=== PATIENT | female | born 1940 | race Caucasian/White ===

== ENCOUNTER 2020-03-06 15:36 | Inpatient (IN) ==
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
[2020-03-06 17:14] LABS: Hematocrit 41.4 % (37.0-47.0); Hemoglobin 13.3 gm/dL (12.5-16.0); Mean Cell Volume 90.4 fl (78-100); Mean Corpuscular Hgb Conc 32.1 g/dl (32-36); Mean Platelet Volume 9.5 fl (8-12.5); Platelet Count 196 K/mm3 (150-450); Red Blood Count 4.58 M/mm3 (4.2-5.4); Red Cell Distribution Width 13.3 % (11.5-14.0); White Blood Count 13.4 K/mm3 (4.0-10.5)
[2020-03-06 17:16] LABS: Total Cells Counted 100
[2020-03-06 17:24] LABS: Prothrombin Time (Patient) 10.7 Seconds (9.1-10.7)
[2020-03-06 17:25] LABS: INR 1.08 INR (0.92-1.08); Partial Thrombolplastin Time 22.2 Seconds (24-32)
[2020-03-06 17:28] LABS: Anion Gap 12.8 mmol/L (6.8-13.8); BUN/Creatinine Ratio 33.3 (9.0-21.6); Bilirubin, Total 0.5 mg/dL (0.0-1.1); Ca. Corrected For Albumin 9.2 mg/dL (8.4-10.2); Calcium * 9.5 mg/dL (7.9-10.9); Carbon Dioxide 26.5 mmol/L (24-32.6); Potassium 3.3 mmol/L (3.4-4.6); Total Protein 7.1 gm/dL (6.2-8.2)
[2020-03-06 17:46] LABS: Atypical (Reactive) Lymph 3 % (0-2); Basophil 1 % (0-1); Lymphocyte 2 % (20-51); Monocyte 5 % (0-9); Neutrophil 89 % (42-75); Neutrophil # 11.9 K/mm3 (1.3-6.0)
[2020-03-06 17:48] LABS: Platelet Estimate Normal (NORMAL); RBC Morphology Normal (NORMAL)
--- NOTE | 2020-03-06 18:27 | CONS ---
- Reason for consultation (1) Hip fx Date of Service: 03/06/20 HPI - General Date of Service: 03/06/20 Narrative: 79-year-old female fell at home today had significant right hip pain. Was brought to the ER x-rays were taken revealing a right femoral neck fracture. Patient rates her pain currently at a 3/10. She notes she had mild spasms. She denies any other significant symptoms currently. She denies any other acute concerns. Notes her pain is mildly worse with movement better with rest. Patient denies any other significant radiating or modifying factors. She has not taken any other significant medications prior to arrival. She denies any other acute illness. She does note she previously had a hemiarthroplasty on her left hip status post a fall but had to be revised 8 years later due to wear. Patient otherwise has no other significant history of concern at this time. Source: patient Exam Limitations: no limitations - History of Present Illness Allergies/Adverse Reactions: Allergies codeine Allergy (Verified 04/06/19 10:01) Home Medications: Home Medications Medication Instructions Recorded Last Taken Aspirin 81 mg PO DAILY 04/06/19 Unknown Physical Examination - Exam Vital Signs: Vital Signs - Last Taken Temp 36.6 C 03/06/20 15:45 Pulse 97 03/06/20 16:17 Resp 15 03/06/20 15:45 BP 219/99 H 03/06/20 15:45 Pulse Ox 99 03/06/20 15:45 O2 Oxygen Delivery Method Room Air Constitutional: Present: Alert, Cooperative, No distress Eye Exam: bilateral eye: normal inspection Respiratory: Present: no respiratory distress Peripheral Pulses: dorsalis-pedis (R): 0 Extremity: Present: other - RLE--> mild diffuse right hip pain, no obvious wounds, SILT, distal capillary refill brisk, 5/5 plantarflexion/dorsiflexion of ankle Skin Exam: Present: normal color, warm/dry Appearance: Present: appropriate appearance Eye contact: Present: cooperative Thoughts: Present: normal thought pattern - Results and Findings: Lab/Microbiology results last 24 hrs: Abnormal/Pending Laboratory Last 24 HRS 03/06/20 03/06/20 03/06/20 17:08 17:08 17:08 WBC 13.4 H Neutrophils % (Manual) 89 H Lymphocytes % (Manual) 2 L Neutrophils # (Manual) 11.9 H Lymphocytes # (Manual) 0.3 L Atypic/Reactive Lymphs 3 H PTT (Delta) 22.2 L Potassium 3.3 L BUN 26 H BUN/Creatinine Ratio 33.3 H Random Glucose 128 H - Assessments/Findings (1) Hip fx Problem: Acute Plan - Plan Plan: -79-year-old female presents status post fall with a right femoral neck fracture. Discussed with patient treatment options including conservative or surgical intervention as well as risk versus benefits including but not limited to infection, bleeding, continued pain, implant failure, fracture, cardiac and stroke risk, inherent risk of surgery. Patient expressed understanding wishes to proceed with surgical intervention. Plan to undergo surgical intervention on 03/07/2020 pending medical clearance. Patient will be n.p.o. at midnight tonight. Patient expressed understanding this treatment plan was discussed with her family as well as well as postoperative care and possible need for custodial facility. They expressed understanding will continue to discuss and determine further treatment after surgical intervention. Discussed the case with Dr. Garnica and he agrees to proceed. Consent was obtained patient was marked, we will proceed with surgery as scheduled once medical team has assessed and patient is admitted. Note there is a Covid test pending.
[2020-03-06] MEDS: NORMAL SALINE 1,000 ML IV PRN (20:16)
[2020-03-06] MEDS ORDERED: ACETAMINOPHEN 500 MG TABLET PO PRN (20:43)
--- NOTE | 2020-03-06 20:51 | HP ---
Chief Complaint - Chief Complaint Date of Service: 03/06/20 Time of Service: 20:27 Chief Complaint: fall, hip fracture History of Present Illness: Patient was walking her dog, tried to step up to her driveway and caught her toe on the sidewalk, causing a fall. She had significant pain and was brought to the ED, where imaging showed a displaced and angulated right femoral neck fracture. She was admitted for surgical repair, tentatively planned for the morning. COVID test negative. Her pain is currently controlled as long as she doesn't move. She does not have significant PMHx, and only takes a baby aspirin. However, her BP is elevated on admission, initially 219/99. Improved to 177/60 without intervention. Her EKG shows RBBB, PVCs, and 1-[address] depression of lead II, aVF, V4-V6. Medical History (Last Reviewed 03/06/20 @ 15:50 by Cynthia Medina RN) Heart murmur Surgical History: Surgical History (Last Reviewed 03/06/20 @ 15:50 by Cynthia Medina RN) History of hip surgery left Family History: Family History (Last Updated 03/06/20 @ 15:50 by Cynthia Medina RN) Other No pertinent family history Social History: (Last Reviewed 03/06/20 @ 15:50 by Cynthia Medina RN) Tobacco: Smoking Status: Never smoker Alcohol: alcohol intake: never Substance Use: substance use type: does not use Review Of Systems (GEN) - Review of Systems Generalized/Overall Review: Absent: Weakness, Fever Respiratory: Absent: Cough, Shortness of Breath Cardiac: Absent: Chest Pain Abdominal: Absent: Abdominal Pain Genitourinary: Absent: Burning Musculoskeletal: Present: Other - right upper thigh pain Neurological: Present: No Symptoms Reported Skin: Present: No Symptoms Reported Immunizations: IMMUNIZATION HX Immunizations Up to Date Yes History of Influenza Vaccine Yes Hx Pneumococcal Vaccination Yes Allergies/Adverse Reactions: Allergies Allergy/AdvReac Type Severity Reaction Status Date / Time codeine Allergy Verified 04/06/19 10:01 Home Medications: HOME MEDICATIONS Aspirin 81 mg PO DAILY 04/06/19 [Last Taken Unknown] Exam - Exam Vital Signs: Vital Signs - Last Taken Temp 36.8 C 03/06/20 19:23 Pulse 71 03/06/20 19:23 Resp 15 03/06/20 19:23 BP 177/60 H 03/06/20 19:23 Pulse Ox 97 03/06/20 19:23 Constitutional: Present: Alert, Cooperative, No distress Respiratory: Present: normal breath sounds, no respiratory distress Cardiovascular/Chest: Present: extra beats Abdomen: Present: soft, nontender Extremity: Present: other - sensation to feet intact, able to move all toes. Absent: lower extremity edema Eye contact: Present: cooperative, good eye contact Diagnostic Studies: Abnormal Lab Results 03/06/20 03/06/20 03/06/20 Range/Units 17:08 17:08 17:08 WBC 13.4 H (4.0-10.5) K/mm3 Neutrophils % (Manual) 89 H (42-75) % Lymphocytes % (Manual) 2 L (20-51) % Neutrophils # (Manual) 11.9 H (1.3-6.0) K/mm3 Lymphocytes # (Manual) 0.3 L (1.5-3.5) k/mm3 Atypic/Reactive Lymphs 3 H (0-2) % PTT (Erasto) 22.2 L (24-32) Seconds Potassium 3.3 L (3.4-4.6) mmol/L BUN 26 H (3-23) mg/dL BUN/Creatinine Ratio 33.3 H (9.0-21.6) Random Glucose 128 H (70-110) mg/dL Laboratory Results WBC 13.4 K/mm3 (4.0-10.5) H 03/06/20 17:08 RBC 4.58 M/mm3 (4.2-5.4) 03/06/20 17:08 Hgb 13.3 gm/dL (12.5-16.0) 03/06/20 17:08 Hct 41.4 % (37.0-47.0) 03/06/20 17:08 MCV 90.4 fl (78-100) 03/06/20 17:08 MCH 29.0 pg (27-31) 03/06/20 17:08 MCHC 32.1 g/dl (32-36) 03/06/20 17:08 RDW 13.3 % (11.5-14.0) 03/06/20 17:08 Plt Count 196 K/mm3 (150-450) 03/06/20 17:08 MPV 9.5 fl (8-12.5) 03/06/20 17:08 Neutrophils % (Manual) 89 % (42-75) H 03/06/20 17:08 Lymphocytes % (Manual) 2 % (20-51) L 03/06/20 17:08 Monocytes % (Manual) 5 % (0-9) 03/06/20 17:08 Basophils % (Manual) 1 % (0-1) 03/06/20 17:08 Neutrophils # (Manual) 11.9 K/mm3 (1.3-6.0) H 03/06/20 17:08 Lymphocytes # (Manual) 0.3 k/mm3 (1.5-3.5) L 03/06/20 17:08 Monocytes # (Manual) 0.7 k/mm3 (0.0-1.0) 03/06/20 17:08 Basophils # (Manual) 0.1 k/mm3 (0.0-0.1) 03/06/20 17:08 Atypic/Reactive Lymphs 3 % (0-2) H 03/06/20 17:08 Platelet Estimate Normal (NORMAL) 03/06/20 17:08 RBC Morphology Normal (NORMAL) 03/06/20 17:08 PT 10.7 Seconds (9.1-10.7) 03/06/20 17:08 INR (Anticoag Therapy) 1.08 INR (0.92-1.08) 03/06/20 17:08 PTT (Erasto) 22.2 Seconds (24-32) L 03/06/20 17:08 Sodium 140 mmol/L (132-142) 03/06/20 17:08 Plasma Sodium 140 mmol/L (130-142) 03/06/20 17:08 Potassium 3.3 mmol/L (3.4-4.6) L 03/06/20 17:08 Chloride 104 mmol/L (97-106) 03/06/20 17:08 Carbon Dioxide 26.5 mmol/L (24-32.6) 03/06/20 17:08 Anion Gap 12.8 mmol/L (6.8-13.8) 03/06/20 17:08 BUN 26 mg/dL (3-23) H 03/06/20 17:08 Creatinine 0.78 mg/dL (0.4-1.4) 03/06/20 17:08 Est GFR (Non-Af Amer) 76 mL/min (60-130) 03/06/20 17:08 BUN/Creatinine Ratio 33.3 (9.0-21.6) H 03/06/20 17:08 Random Glucose 128 mg/dL (70-110) H 03/06/20 17:08 Calcium 9.5 mg/dL (7.9-10.9) 03/06/20 17:08 Calcium Adj for Albumin 9.2 mg/dL (8.4-10.2) 03/06/20 17:08 Total Bilirubin 0.5 mg/dL (0.0-1.1) 03/06/20 17:08 AST 14 U/L (0-48) 03/06/20 17:08 ALT 27 U/L (19-67) 03/06/20 17:08 Alkaline Phosphatase 98 U/L (50-170) 03/06/20 17:08 Total Protein 7.1 gm/dL (6.2-8.2) 03/06/20 17:08 Albumin 4.0 gm/dl (3.4-5.0) 03/06/20 17:08 SARS-CoV-2 (PCR) Not detected (NotDetected) 03/06/20 17:53 Assessment/Plan - Assessment/Plan (1) Displaced fracture of right femoral neck Assessment: Using the NSQIP surgical risk calculator, she is above average risk for DC to nursing facility, average risk for URI, and below average risk for any other adverse outcome. DC to a nursing facility is to be expected. She asked for tylenol for pain control, and this has been ordered. Will also order morphine to be used if pain increases. OK to proceed with surgery. Problem: Acute (2) RBBB Assessment: She was unaware, but RBBB is not usually symptomatic. She also has 1-[address] depression of leads II, aVF, V4-6. Frequent PVCs further complicate reading her EKG. Initial troponin was 0.038, repeat 0.075, which are low numbers, not indicative of acute cardiac event. Will trend, however, to ensure they do not significant increase. Her ST depression may be due to her RBBB. She is asymptomatic. Discussed her case with the bottom polisher litigation manager, who agrees with proceeding with surgery, with cardiac monitoring post-op. Problem: Acute (3) Hypokalemia Assessment: mild at 3.3. Will administer 20 mEq KDur, and recheck. Problem: Acute (4) Elevated blood pressure reading Assessment: Initial BP of 219/99 improved to 177/60, without administration of antihypertensive or pain medication. She does not have a diagnosis of HTN. Her elevated BP may be due to pain, or the stress of the situation. Will not administer antihypertensive at this time, in anticipation of further decrease of her BP with morphine or tylenol. If BP would be consistently 180/100, will give labetalol. Problem: Acute
[2020-03-06] MEDS ORDERED: MORPHINE SULFATE 2 MG/ML DISP.SYRIN IV PRN (21:03)
[2020-03-07] MEDS: NORMAL SALINE 1,000 ML IV PRN (04:21)
[2020-03-07] MEDS ORDERED: ISOPROPYL ALCOHOL 480 APPL BTL MC ONE (06:19)
[2020-03-07] MEDS ORDERED: ceFAZolin SODIUM 1 GM VIAL ONE (06:19)
--- NOTE | 2020-03-07 06:58 | ANES ---
Anesthesia Pre Procedure Eval Vitals/Labs: Last Vital Signs Temp 36.8 C 03/07/20 02:49 Pulse 77 03/07/20 02:49 Resp 14 03/07/20 02:49 BP 169/67 H 03/07/20 02:49 Pulse Ox 96 03/07/20 02:49 HOME MEDICATIONS Aspirin 81 mg PO DAILY 04/06/19 [Last Taken Unknown] Allergies/Adverse Reactions: Allergies Allergy/AdvReac Type Severity Reaction Status Date / Time codeine Allergy Verified 04/06/19 10:01 - Planned Procedure Planned Procedure: HIP FX Medication List Reviewed:: Yes Allergies Verified: Yes Medical History (Last Reviewed 03/07/20 @ 06:55 by Sarkis Serrano CRNA) Heart murmur Surgical History (Last Reviewed 03/07/20 @ 06:55 by Sarkis Serrano CRNA) History of hip surgery left Family History (Last Reviewed 03/07/20 @ 06:55 by Sarkis Serrano CRNA) Other No pertinent family history - Family Anesthesia History Family History:: no untoward family reactions to anesthesia, no familial bleeding tendencies, no family history of clotting disorders, no family history of premature - Airway/Neck/Teeth Within Normal Limits:: Yes Teeth Condition: intact Neck Exam: full range of motion Mallampatti Score: 2 Thyromental (T-M) distance: > 6 cm Mandibulo Hyoid distance: > 3 cm - Respiratory Respiratory Physical: wheezing - light Smoking Status: Never smoker Sleep Apnea currently treated: No Sleep Apnea by current assessment: No - Cardiovascular Tolerate Activity: Fair Heart Sounds: S1 & S2, Regular - Gastrointestinal NPO since: 2400 - Anesthesia Assessment and Plan ASA Class: PS, III Anesthesia Type Plan: Spinal
[2020-03-07 07:01] LABS: Albumin * 3.2 gm/dl (3.4-5.0); Anion Gap 9.8 mmol/L (6.8-13.8); BUN/Creatinine Ratio 22.2 (9.0-21.6); Bilirubin, Total 0.9 mg/dL (0.0-1.1); Ca. Corrected For Albumin 8.5 mg/dL (8.4-10.2); Calcium * 8.2 mg/dL (7.9-10.9); Carbon Dioxide 28.3 mmol/L (24-32.6); Potassium 3.1 mmol/L (3.4-4.6); Total Protein 5.7 gm/dL (6.2-8.2)
[2020-03-07] MEDS ORDERED: BUPIVACAINE HCL/PF 10 ML VIAL ONE (07:04)
[2020-03-07] MEDS ORDERED: PROPOFOL VIAL IV ONE (07:04)
[2020-03-07] MEDS ORDERED: MIDAZOLAM HCL/PF 1 MG/ML VIAL ONE (07:04)
[2020-03-07] MEDS ORDERED: POTASSIUM CHLORIDE 20 MEQ TABLET.SA PO ONE (07:13)
[2020-03-07] MEDS: RINGER'S SOLUTION,LACTATED 1,000 ML IV PRN ×2 (08:15→10:13)
[2020-03-07] MEDS ORDERED: ceFAZolin SODIUM 1 GM VIAL IV PRN (08:18)
[2020-03-07] MEDS ORDERED: MAG HYDROX/ALUMINUM HYD/SIMETH 30 ML UDC PO PRN (08:59)
[2020-03-07] MEDS ORDERED: MAGNESIUM HYDROXIDE 30 ML UDC PO PRN (08:59)
[2020-03-07] MEDS ORDERED: ONDANSETRON HCL/PF 2 MG/ML VIAL IV PRN (08:59)
--- NOTE | 2020-03-07 08:59 | OR ---
Operative Report - Dictated Report Narrative: Date: 03/07/2020 Preoperative diagnosis: Closed right hip displaced femoral neck fracture. Postoperative diagnosis: Closed right hip displaced femoral neck fracture Procedure: Right hip cemented daiana-arthroplasty. Surgeon: Tl Garnica M.D. Cage Shift Manager: Stas Olivas PA-C (provided essential set of skilled, educated hands that assisted with transfer, positioning, prepping, draping, retraction, manipulation, placement of implants, irrigation, closure wounds, and application of dressings all of which could not be performed by the available surgical crew) Anesthesia: Spinal Complications: None Specimens: Bone. Estimated blood loss: 100 milliliters. Retained implants: Depuy [employer] size 3 basic cemented femoral stem. Size 48 millimeter outside diameter self-centering bipolar head with + 1.5 millimeter cobalt chromium 28 mm femoral head. Indications: Mrs. Carrillo is a 79-year-old female who sustained a ground-level fall at home resulting in injury to the right hip. This patient was evaluated on the floor and found to have sustained a displaced femoral neck fracture. The risks and benefits were discussed with the patient as well as any power of fishery biologist or family . The patient wished to proceed with surgical treatment. The risks, benefits, and alternatives discussed were , blood clots, bleeding, infection, nerve/tendon blood vessel/ injury, malposition of components, dislocation and/or instability of joint, intraoperative fracture, postoperative limited range of motion, persistent pain, failure of components, and need for additional procedures. Patient wished to proceed. Consent was obtained after answering all questions. Procedure: After marking the correct extremity on the floor, the patient was taken to the operating room. A timeout was performed. IV antibiotics consisting of Ancef were administered prior to the procedure. A spinal anesthetic was induced by anesthesia. A Scott catheter was inserted if not are in place. The patient was then transitioned to a lateral position on a well- padded pegboard. An axillary roll was placed. The head was in neutral position. The non-operative down leg was well-padded with SCD and SONU hose in place. The arms were supported and padded to protect from any undue pressure on the bony prominences and nerves. Well-padded anterior and posterior pelvic and chest posts were secured in order to maintain a stable position of the pelvis. This was placed so that the pelvis was perpendicular to the floor. The body was in line with the pelvis. Once it was felt that we had protected all the bony prominences and the patient was well secured with a safety belt as well, the leg was pre-scrubbed with alcohol, prepped and draped in a standard sterile fashion. A standard anterior lateral hip incision was marked out over the greater trochanter. Ioban drapes were then placed. The skin incision was then made. Sharp dissection with a scalpel utilizing cautery for hemostasis was carried out down to the gluteus and iliotibial band fascia. This was split in line with the skin incision. The greater trochanter bursa was excised. The anterior and posterior margins of the abductor tendon were identified. The anterior 1/2-1/3 of the tendon was tagged and reflected off the greater trochanter leaving a sleeve of tendon for repair at the completion of the case. This exposed the underlying hip joint capsule. An inverted T-type capsulotomy was made extending this up to the brim of the acetabulum. We encountered a hematoma at this point confirming an acute fracture as well as noted displacement of the femoral neck fracture. Using Homans to assist with elevation of the soft tissues off the anterior, superior, and inferior aspects of the femoral neck, the hip was then placed in a figure 4 position for a femoral neck cleanup cut to be made. With the leg in an externally rotated and adducted position, the cutting flag was utilized in order to hailey for a standard femoral neck cut approximately a fingerbreadth above the level of the lesser trochanter. This was done while protecting the surrounding soft tissues with Homans. The femoral head was then removed and sized for guidance on the size of the bipolar head. It was noted that there was no significant loss of articular cartilage on both the femoral head and weightbearing portions of the acetabulum. We then returned the leg to the table and turned our attention to the acetabulum. While protecting the surrounding soft tissues, the labrum and remaining tissue in the fovea were excised using a scalpel and cautery. The acetabulum was then protected with a sponge while we returned our attention to the femur. With the leg in a figure 4 position utilizing Homans for soft tissue protection, a box cutting osteotome, followed by Charnley awl, followed by serial broaches were utilized in order to prepare the femur. It was found that a size 3 broach gave good axial and rotational stability. The proximal femur was visualized to ensure that there were no signs of fracture. A series of heads were trialed. It was found that a + 1.5 mm femoral head gave good overall stability. There was minimal longitudinal instability. Hip range of motion was able to reach full extension and external rotation to greater than 75 degrees prior to impingement along the posterior acetabulum. The hip was able to be flexed to greater than 90 degrees with internal rotation greater than 60 degrees prior to anterior impingement. The limb lengths were near equal based on comparison to the contralateral side . At this point it was felt these were the appropriately sized femoral components as well as neck and femoral head. The trial implants were removed. A canal cement plug was placed distally and the canal was thoroughly irrigated using pulsatile vacuum brush device. The canal was then thoroughly dried with a suction device. The cement was vacuum mixed per the mold unloader's instructions and placed into a cement gun. Cement was then placed in the dry irrigated femur using modern cementing technique as well as using a pressurizing device. The stem was then placed in the appropriate version compared to the [place] anatomy and held in place while the cement cured and the extruded cement was removed. Once the cement was fully cured, we ensured that the stem was stable and that there were no signs of fracture. The remaining extruded cement was removed, and the joint and the capsule were thoroughly evaluated to ensure there are no cement fragments. The final femoral bipolar head was then impacted in the place. The hip was then reduced and seated completely. The capsule was repai red with a single interrupted #1 Vicryl. The abductor tendon was repaired to the greater trochanter utilizing #5 Ethibond through drill holes. This was oversewn with #1 Vicryl. The fascia was closed with interrupted #1 Vicryl and Stratafix barbed suture. The wounds were thoroughly irrigated as we closed in layers. The deep and subcutaneous fat layers were closed with 0 Vicryl. The subcutaneous tissue was closed with a running 3-0 Vicryl and the skin with kamala. All sponge, needle, blade, and instrument counts were correct prior to closing the wounds. Sterile dressings consisting of Xeroform, 4 x 4's, ABD, and tape were applied. The patient was awoken and transferred to her hospital bed and then to the postanesthesia care unit in stable condition. Postoperative condition: The plan is to return to the medical/surgical inpatient floor postoperatively. Postoperatively 24 hours of IV antibiotics, pain control, physical therapy, occupational therapy, and medical comanagement will be utilized. Patient will be weightbearing as tolerated with anterior hip precautions. Postoperative films will be obtained in the recovery room.
--- NOTE | 2020-03-07 09:13 | ANES ---
Post Anesthesia Discharge - Transfer of Care Transfer of Care handoff given to nurse: Yes - Discharge from PACU Discharge from PACU when meets criteria: Yes - Awake and comfortable.
--- NOTE | 2020-03-07 10:43 | ANES ---
Post Anesthesia Assessment - Vital Signs Vitals: Last Vital Signs Temp 35.9 C L 03/07/20 09:50 Pulse 63 03/07/20 09:50 Resp 16 03/07/20 09:50 BP 144/75 03/07/20 09:50 Pulse Ox 100 03/07/20 09:50 Airway Patency: Normal - Mental Status Level Of Consciousness: Awake, Alert, Appropriate - Pain Level Pain Score: 0 - N/V Assessment Nausea/Vomiting Presence: None Dehydration:: No
[2020-03-07] MEDS: ceFAZolin SODIUM 1 GM in DEXTROSE 5 % IN WATER 100 ML IV SCH ×6 (11:27→22:18)
[2020-03-07] MEDS: KETOROLAC TROMETHAMINE 15 MG/ML VIAL IV SCH ×3 (11:28→21:06)
--- NOTE | 2020-03-07 11:41 | PN ---
Subjective - Date and Time Seen Date: 03/07/20 Time: 11:15 Subjective Narrative: Patient seen post-op. Is not currently having pain. Had some nausea. She'd prefer to go home after DC. Objective - Review of Systems Generalized/Overall Review: Denies: Weakness Respiratory: Denies: Shortness of Breath Cardiac: Denies: Edema Abdominal: Reports: Nausea Genitourinary Symptoms: Reports: No Symptoms Reported - cope in place Musculoskeletal Complaints: Reports: Joint Pain - right hip Neurological: Reports: Anxiety - regarding DC plans - Vitals Vitals: Last Vital Signs Temp 36.7 C 03/07/20 10:44 Pulse 67 03/07/20 11:05 Resp 19 03/07/20 10:44 BP 157/79 H 03/07/20 11:05 Pulse Ox 100 03/07/20 11:05 - Abnormal Lab Findings Abnormal Lab Findings: Abnormal Lab Results 03/06/20 03/06/20 03/06/20 Range/Units 17:08 17:08 17:08 WBC 13.4 H (4.0-10.5) K/mm3 Neutrophils % (Manual) 89 H (42-75) % Lymphocytes % (Manual) 2 L (20-51) % Neutrophils # (Manual) 11.9 H (1.3-6.0) K/mm3 Lymphocytes # (Manual) 0.3 L (1.5-3.5) k/mm3 Atypic/Reactive Lymphs 3 H (0-2) % PTT ([place]) 22.2 L (24-32) Seconds Potassium 3.3 L (3.4-4.6) mmol/L BUN 26 H (3-23) mg/dL BUN/Creatinine Ratio 33.3 H (9.0-21.6) Random Glucose 128 H (70-110) mg/dL Total Protein (6.2-8.2) gm/dL Albumin (3.4-5.0) gm/dl 03/07/20 Range/Units 06:22 WBC (4.0-10.5) K/mm3 Neutrophils % (Manual) (42-75) % Lymphocytes % (Manual) (20-51) % Neutrophils # (Manual) (1.3-6.0) K/mm3 Lymphocytes # (Manual) (1.5-3.5) k/mm3 Atypic/Reactive Lymphs (0-2) % PTT ([place]) (24-32) Seconds Potassium 3.1 L (3.4-4.6) mmol/L BUN (3-23) mg/dL BUN/Creatinine Ratio 22.2 H (9.0-21.6) Random Glucose 115 H (70-110) mg/dL Total Protein 5.7 L (6.2-8.2) gm/dL Albumin 3.2 L (3.4-5.0) gm/dl - Exam Constitutional: Present: Alert, Cooperative, No distress, Thin and frail Respiratory: Present: lungs clear, normal breath sounds Cardiovascular/Chest: Present: regular rate, rhythm Abdomen: Present: soft Extremity: Absent: lower extremity edema Eye contact: Present: cooperative, good eye contact Cauti Physician Documentation - Urinary Catheter Management Urethral (Cope) Date of Insertion: 03/06/20 Time of Insertion: 17:47 Assessment/Plan Plan Narrative: She underwent surgical repair of right femoral neck fracture earlier this morning. Pain is currently controlled. Anticoagulation per ortho. Discussed PT goals, and her ability to meet this goals will determine if she is able to go home vs DC to a facility for rehab. If family is able to help and she meets PT goals, she will be ok to DC home. Fall was due to tripping on an uneven surface. Her BP is a bit high, but not significantly. She'd prefer to avoid antih ypertensives. Discussed starting something if BP is greater than 180/100 consistently. Her K+ actually decreased from 3.3 to 3.1 after 20 mEq po replacement. Added an extra 40 mEq dose, and will recheck in the morning. - Problems/Diagnosis (1) Displaced fracture of right femoral neck Problem: Acute (2) RBBB Problem: Chronic Narrative: Probably chronic. No intervention needed. (3) Hypokalemia Problem: Acute (4) Elevated blood pressure reading Problem: Acute
--- NOTE | 2020-03-07 12:08 | ANES ---
Post Anesthesia Assessment - Vital Signs Vitals: Last Vital Signs Temp 36.1 C 03/07/20 11:35 Pulse 70 03/07/20 11:35 Resp 16 03/07/20 11:35 BP 159/67 H 03/07/20 11:35 Pulse Ox 97 03/07/20 11:35 Airway Patency: Normal - Mental Status Level Of Consciousness: Awake - Pain Level Pain Score: 0 - N/V Assessment Nausea/Vomiting Presence: None Dehydration:: No
[2020-03-07] MEDS: POTASSIUM CHLORIDE 20 MEQ TABLET.SA PO SCH ×3 (12:47→16:20)
[2020-03-07] MEDS: HYDROcodone/ACETAMINOPHEN 1 EACH TABLET PO PRN (18:37)
[2020-03-07] MEDS ORDERED: SENNOSIDES/DOCUSATE SODIUM 1 TAB TABLET PO SCH (21:00)
[2020-03-08] MEDS: KETOROLAC TROMETHAMINE 15 MG/ML VIAL IV SCH ×2 (04:22→09:28)
[2020-03-08] MEDS: HYDROcodone/ACETAMINOPHEN 1 EACH TABLET PO PRN (05:37)
[2020-03-08 06:18] LABS: Hematocrit 35.9 % (37.0-47.0); Hemoglobin 11.5 gm/dL (12.5-16.0); Mean Cell Volume 90.2 fl (78-100); Mean Corpuscular Hemoglobin 28.9 pg (27-31); Mean Platelet Volume 9.4 fl (8-12.5); Platelet Count 159 K/mm3 (150-450); Red Blood Count 3.98 M/mm3 (4.2-5.4); Red Cell Distribution Width 13.1 % (11.5-14.0); White Blood Count 6.3 K/mm3 (4.0-10.5)
[2020-03-08 06:33] LABS: Albumin * 2.9 gm/dl (3.4-5.0); Anion Gap 9.5 mmol/L (6.8-13.8); Bilirubin, Total 0.8 mg/dL (0.0-1.1); Calcium * 8.4 mg/dL (7.9-10.9); Carbon Dioxide 28.2 mmol/L (24-32.6); Potassium 3.7 mmol/L (3.4-4.6); Total Protein 5.7 gm/dL (6.2-8.2)
[2020-03-08] MEDS ORDERED: ENOXAPARIN SODIUM 40 MG/0.4 ML SYRG SC SCH (07:59)
[2020-03-08] MEDS: POTASSIUM CHLORIDE 20 MEQ TABLET.SA PO SCH (09:28)
--- NOTE | 2020-03-08 12:25 | PN ---
Subjective - Date and Time Seen Date: 03/08/20 Time: 12:21 Subjective Narrative: 79-year-old female postop day 1 status post right hip hemiarthroplasty arthroplasty. Patient overall doing well she notes her pain is minimal, mild increase with weightbearing. Patient otherwise has no acute complaints she had some mild nausea however this resolved this a.m. without significant medication. Patient otherwise has no acute complaints she has passed physical therapy goals notes she walked up and down the beck and did the stairs multiple times. She otherwise notes she wishes to be discharged home, she notes she has family at home to help with her recovery process. Objective - Vitals Vitals: Last Vital Signs Temp 36.8 C 03/08/20 10:40 Pulse 74 03/08/20 10:40 Resp 18 03/08/20 10:40 BP 146/72 03/08/20 10:40 Pulse Ox 99 03/07/20 23:35 - Abnormal Lab Findings Abnormal Lab Findings: Abnormal Lab Results 03/08/20 03/08/20 Range/Units 06:15 06:15 RBC 3.98 L (4.2-5.4) M/mm3 Hgb 11.5 L (12.5-16.0) gm/dL Hct 35.9 L (37.0-47.0) % BUN/Creatinine Ratio 25.0 H (9.0-21.6) Random Glucose 157 H D (70-110) mg/dL Total Protein 5.7 L (6.2-8.2) gm/dL Albumin 2.9 L (3.4-5.0) gm/dl - Exam Constitutional: Present: Alert, Oriented x3, Cooperative, No distress Respiratory: Present: no respiratory distress Extremity: Present: other - RLE--> sensation intact to light touch, 4+/5 knee flexion extension, distal capillary refill brisk, mild tenderness about right hip, surgical dressings in place clean/dry/intact Skin Exam: Present: normal color, warm/dry Appearance: Present: appropriate appearance Eye contact: Present: cooperative, good eye contact Thoughts: Present: normal thought pattern Cauti Physician Documentation - Urinary Catheter Management Urethral ([place]) Date of Insertion: 03/06/20 Time of Insertion: 17:47 Date of Removal: 03/08/20 Time of Removal: 08:15 Assessment/Plan Plan Narrative: -79-year-old female postop day 1 status post right hip hemiarthroplasty -Weightbearing as tolerated with anterior precautions, assistive device -PT/OT progress per protocol -P.o. diet as tolerated -P.o. pain medication as needed -DVT prophylaxis: Lovenox for 7 days followed by 325 mg aspirin daily -Chronic medical conditions per medicine team -Disposition: Discharged home with outpatient physical therapy, follow-up with orthopedic outpatient clinic at 2 weeks postop - Problems/Diagnosis (1) Hip fx Problem: Acute Qualifiers: Encounter type: initial encounter Fracture type: closed Laterality: right Qualified Code(s): S72.001A - Fracture of unspecified part of neck of right femur, initial encounter for closed fracture
[2020-03-08 14:38] VITALS: BP 141/60
--- NOTE | 2020-03-08 15:09 | DS ---
Date of Discharge:: 03/08/20 Hospital Course: 79 year old female with no real pertinent PMH admitted for right hip fracture who underwent total right hip arthroplasty yesterday. She tolerated the surgery well with no complications. Her pain has been well controlled with oral meds. Her vitals have been stable since being here. She had mild drop in her hemoglobin but it is stable. She completed PT evaluation. She will need PT outpatient. She will follow up with her PCP in 1 week. Follow up with ortho as directed. She will be sent home with lovenox for 7 days and then full strength asa after. She also will be sent home with some pain medication. She has no other concerns at this time Procedures Performed: see notes below - right total arthroplasty Results and Findings: Lab Pending Results 03/06/20 17:08: WBC 13.4 H, RBC 4.58, Hgb 13.3, Hct 41.4, MCV 90.4, MCH 29.0, MCHC 32.1, RDW 13.3, Plt Count 196, MPV 9.5, Neutrophils % (Manual) 89 H, Lymphocytes % (Manual) 2 L, Monocytes % (Manual) 5, Basophils % (Manual) 1, Neutrophils # (Manual) 11.9 H, Lymphocytes # (Manual) 0.3 L, Monocytes # (Manual) 0.7, Basophils # (Manual) 0.1, Atypic/Reactive Lymphs 3 H, Platelet Estimate Normal, RBC Morphology Normal 03/06/20 17:08: PT 10.7, INR (Anticoag Therapy) 1.08, PTT ([place]) 22.2 L 03/06/20 17:08: Sodium 140, Plasma Sodium 140, Potassium 3.3 L, Chloride 104, Carbon Dioxide 26.5, Anion Gap 12.8, BUN 26 H, Creatinine 0.78, Est GFR (Non-Af Amer) 76, BUN/Creatinine Ratio 33.3 H, Random Glucose 128 H, Calcium 9.5, Calcium Adj for Albumin 9.2, Total Bilirubin 0.5, AST 14, ALT 27, Alkaline Phosphatase 98, Total Protein 7.1, Albumin 4.0 03/06/20 17:08: Troponin I 0.038 03/06/20 17:53: SARS-CoV-2 (PCR) Not detected 03/06/20 21:05: Troponin I 0.075 03/07/20 06:22: Sodium 141, Plasma Sodium 141, Potassium 3.1 L, Chloride 106, Carbon Dioxide 28.3, Anion Gap 9.8, BUN 14, Creatinine 0.63, Est GFR (Non-Af Amer) 97 D, BUN/Creatinine Ratio 22.2 H, Random Glucose 115 H, Calcium 8.2, Calcium Adj for Albumin 8.5, Total Bilirubin 0.9, AST 12, ALT 23, Alkaline Phosphatase 86, Total Protein 5.7 L, Albumin 3.2 L 03/07/20 06:22: Troponin I 0.079 03/08/20 06:15: Sodium 137, Plasma Sodium 138, Potassium 3.7, Chloride 103, Carbon Dioxide 28.2, Anion Gap 9.5, BUN 13, Creatinine 0.52, Est GFR (Non-Af Amer) 121 D, BUN/Creatinine Ratio 25.0 H, Random Glucose 157 H D, Calcium 8.4, Calcium Adj for Albumin 9.0, Total Bilirubin 0.8, AST 13, ALT 22, Alkaline Phosp hatase 82, Total Protein 5.7 L, Albumin 2.9 L 03/08/20 06:15: WBC 6.3 D, RBC 3.98 L, Hgb 11.5 L, Hct 35.9 L, MCV 90.2, MCH 28.9, MCHC 32.0, RDW 13.1, Plt Count 159, MPV 9.4 Discharge Location: Home Disposition: Home self-care Condition: Stable Discharge Activity: Weight bearing - anterior hip precautions, use assisted device as needed Discharge Diet: General/regular food Problem Oriented Discharge Instructions to Patient/Family: Total Hip Replacement, Anterior, Care After Additional Patient Instructions (free text): Fax outpatient therapy order to therapy agency of choice. Prescriptions (Any new or edited meds): Aspirin 325 mg PO DAILY #30 tab Transmission Status: Pending to [place], [place] Enoxaparin Sodium [Lovenox] 40 mg SQ DAILY #7 ml Transmission Status: Pending to [place], [place] HYDROcodone/ACETAMINOPHEN [[place] 5-325] 1 tab PO Q4H PRN #40 tab PRN Reason: Pain Transmission Status: Received by [place], [place] Complete Home Medications List: Complete Home Medication List: Aspirin 81 mg PO DAILY 04/06/19 Aspirin 325 mg PO DAILY #30 tab 03/08/20 Enoxaparin Sodium [Lovenox] 40 mg SQ DAILY #7 ml 03/08/20 HYDROcodone/ACETAMINOPHEN [[place] 5-325] 1 tab PO Q4H PRN #40 tab 03/08/20
== END 2020-03-08 15:45 | disposition home or self-care (01) | DRG 522 ==
LOC: ER 15:36 → MS 19:18
PROVIDERS: ADMIT Family Medicine; ATTEND Family Medicine
DX: R03.0 Elevated blood-pressure reading, without diagnosis of hypertension; I45.10 Unspecified right bundle-branch block; E87.6 Hypokalemia; J44.9 Chronic obstructive pulmonary disease, unspecified; I49.3 Ventricular premature depolarization; W01.0XXA Fall on same level from slipping, tripping and stumbling without subsequent striking against object, initial encounter; S72.001A Fracture of unspecified part of neck of right femur, initial encounter for closed fracture